=== PATIENT | female | born 1965 | race Caucasian/White ===

== ENCOUNTER 2024-09-22 08:59 | Outpatient (OUT) | payer OTHER, SELFPAY ==
--- NOTE | 2024-09-22 09:08 | ECG_ITS ---
[facility] Test Date: 2024-09-22 Pat Name: GABE FU Department: Room: - Gender: Female [employer]: : [id number] Requested By: CITLALI MAYORGA Order Number: [id number] Reading MD: Measurements Intervals [place] Rate: 56 P: 85 MO: 164 QRS: 68 QRSD: 92 T: 83 QT: 426 QTc: 414 Interpretive Statements SINUS BRADYCARDIA POSSIBLE RIGHT VENTRICULAR CONDUCTION DELAY [RSR (QR) IN V1/V2] No previous ECG available for comparison
== END 2024-09-22 09:00 | disposition home or self-care (01) ==
LOC: PST 09:02
PROVIDERS: Family Provider Family Medicine; PCP Family Medicine; Visit Provider Obstetrics & Gynecology
DX: Z01.818 Encounter for other preprocedural examination (principal); N95.0 Postmenopausal bleeding; R10.2 Pelvic and perineal pain; N94.10 Unspecified dyspareunia; Z80.41 Family history of malignant neoplasm of ovary
CPT/HCPCS: 93005

== ENCOUNTER 2024-09-22 09:07 | Outpatient (OUT) | payer OTHER, SELFPAY ==
[2024-09-22 09:47] LABS: Basophils Percent Auto 0.8 % (0.2-2.0); Eosinophils Absolute Auto 0.2 10^3/uL (0.0-0.7); Eosinophils Percent Auto 3.1 % (0.9-7.0); Hematocrit 35.9 % (36.0-48.0); Hemoglobin 11.7 g/dL (12.0-16.0); Lymphocytes Absolute Auto 1.5 10^3/uL (1.2-3.8); Mean Corpuscular HGB Conc 32.6 g/dL (29.9-35.2); Mean Corpuscular Hemoglobin 30.5 pg (26.7-34.0); Mean Corpuscular Volume 93.7 fL (81.0-99.0); Mean Platelet Volume 9.3 fL (9.5-13.5); Monocytes Absolute Auto 0.5 10^3/uL (0.3-0.8); Monocytes Percent Auto 9.6 % (1.7-12.0); Neutrophils Absolute Auto 2.6 10^3/uL (1.4-6.5); Neutrophils Percent Auto 55.5 % (43.0-75.0); Platelet Count 216 10^3/uL (150-450); Red Blood Count 3.83 10^6/uL (4.20-5.40); Red Cell Distribution Width 13.4 % (11.0-15.0); White Blood Count 4.8 10^3/uL (4.0-11.0)
[2024-09-22 10:12] LABS: Free T4 0.82 ng/dL (0.76-1.46)
[2024-09-22 10:17] LABS: Alanine Aminotransferase 24 U/L (14-59); Anion Gap 10.7; Aspartate Amino Transferase 27 U/L (15-37); BUN Creatinine Ratio 17.1; Bilirubin Total 0.4 mg/dL (0.2-1.0); Calcium 8.9 mg/dL (8.5-10.1); Carbon Dioxide 31.4 mmol/L (21.0-32.0); Chloride 106 mmol/L (98-107); Estimated GFR (African America >60 (>=60 mL/min/1.73m^2); Estimated GFR (Non-African Ame >60 (>=60 mL/min/1.73m^2); Glucose 86 mg/dL (74-106); Potassium 4.1 mmol/L (3.5-5.1); Sodium 144 mmol/L (136-145)
[2024-09-22 10:18] LABS: Albumin Globulin Ratio 1.1; Albumin Level 3.4 g/dL (3.4-5.0); Alkaline Phosphatase 61 U/L (46-116); Chol HDL Ratio 2.6; Cholesterol 246 mg/dL (<=200); Globulin 3.1 g/dL; HDL Cholesterol 93 mg/dL (40-60); Thyroid Stimulating Hormone 1.879 uIU/mL (0.358-3.740); Total Protein 6.5 g/dL (6.4-8.2); Triglycerides 61 mg/dL (<=150); VLDL CHOLESTEROL 12.2 mg/dL
== END 2024-09-22 09:08 | disposition home or self-care (01) ==
LOC: LAB 09:07
PROVIDERS: Family Provider Family Medicine; PCP Family Medicine; Visit Provider Family Medicine
DX: Z00.00 Encounter for general adult medical examination without abnormal findings (principal); Z01.818 Encounter for other preprocedural examination; N95.0 Postmenopausal bleeding; R10.2 Pelvic and perineal pain; N94.10 Unspecified dyspareunia; Z80.41 Family history of malignant neoplasm of ovary
CPT/HCPCS: 80053; 80061; 84439; 84443; 85025; 93005

== ENCOUNTER 2024-10-02 07:38 | Day surgery (SDC) | payer OTHER, SELFPAY ==
[2024-09-22 09:34] VITALS: BP 111/59; PULSE 69; TEMP 36.4; O2SAT 96; BMI 18.1
[2024-10-02] VITALS (12 sets, daily range): BP systolic 96–112; BP diastolic 57–68; PULSE 53–70; TEMP 36.1–36.3; O2SAT 95–98; BMI 18.0
--- OUTSIDE RECORDS SUMMARY | 2024-10-02 07:40 | XMS_ITS | CCD ---
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 Role Phone Elmira Gong MD Primary Care Provider [phone] ANATOLY DELATORRE Attending Unavailable DEFELMIRA NICHOLAS Referring Unavailable DEFRANCE, ELMIRA Velez Primary Care Unavailable DEFRANCE, ELMIRA Velez Primary Care Unavailable ROMULO GARCIA Attending Unavailab BARBARA Wyatt Consulting Unavailable AL-CARRIEBOURRoopa PUCKETT A Admitting Unavailabl e KAPIL BABB Referring Unavailable DEFRANCE, ELMIRA Velez Primary Care Unavailable KAPIL BABB Referring Unavailable DEFRANCE, ELMIRA Velez Primary Care Unavailable KAPIL BABB Referring Unavailable DEFRANCE, ELMIRA Velez Primary Care Unavailable BABBKAPIL Referring Unavailable DEFRANCE, ELMIRA Velez Primary Care Unavailable ANATOLY DELATORRE Referring Unavailable DEFRANCE, ELMIRA Velez Primary Care Unavailable DEFRANCE, ELMIRA Velez Referring Unavailable DEFRANCE, ELMIRA Velez Primary Care Unavailable Defrance Elmira MAGDALENO Primary Care Provider [phone] SOFIA RAI Attending Unavailable SOFIA RAI Attending Unavailable KERENCITLALI Attending Unavailable KERENCITLALI TRUJILLO Attending Unavailable DEFELMIRA NICHOLAS Attending Unavailable DEFRANCE, ELMIRA Velez Referring Unavailable DEFRANCE, ELMIRA Velez Primary Care Unavailable Medications Current Medications Medication Drug Class(es) Dates Sig (Normalized) Sig (Original) estradiol 0.1 mg/ml vaginal cream (8 sources) Estrogen Start: 01-16-2024 estradiol (Estrace) 0.1 MG/GM vaginal cream Insert 1 g into the vagina 2 (two) times a week 01/16/2024 Active Start: 09-19-2023 End: 01-15-2024 estradioL (ESTRACE) 0.01 % ( 0.1 mg/gram) vaginal cream Indications: Genitourinary syndrome of menopause Insert 1 g into the vagina 2 (two) times a week. 127.5 g 3 01/16/2024 Active hydroxychloroquine sulfate 200 mg oral tablet (13 sources) Antimalarial, Antirheumatic Agent Start: 04-08-2024 End: 09-21-2024 take 1 tablet by mouth in the morning, then take 1 tablet by mouth at bedtime hydroxychloroquine (PLAQUENIL) 200 mg tablet Indications: HLA B27 positive Take 1 tablet (200 mg total) by mouth in the morning and 1 tablet (200 mg total) before bedtime. 180 tablet 3 09/21/2024 Active Start: 04-24-2023 take 1 tablet by carleen th in the morning, then take 1 tablet by mouth at bedtime hydrOXYchloroQUINE (PLAQUENIL) 200 mg tablet Indications: HLA B27 positive Take 1 tablet (200 mg total) by mouth in the morning and 1 tablet (200 mg total) before bedtime. 180 tablet 1 04/24/2023 Active Multiple Vitamin (multivitamin) capsule (4 sources) take 1 capsule by mouth in the morning Multiple Vitamin (multivitamin) capsule Take 1 capsule by mouth in the morning. Active multivitamin capsule (3 sources) take 1 capsule by mouth in the morning multivitamin capsule Take 1 capsule by mouth in the morning. Active take 1 capsule by mouth in the m orning multivitamin capsule Take 1 capsule by mouth in the morning. 0 Active PARoxetine hydrochloride 10 mg oral tablet (13 sources) Serotonin Reuptake Inhibitor Start: 09-19-2023 End: 09-21-2024 take 1 tablet by mouth once daily PARoxetine (PaxiL) 10 mg tablet Indications: Menopausal vasomotor syndrome Take 1 tablet (10 mg total) by mouth nightly. 90 tablet 3 09/21/2024 Active Completed/Discontinued Medications Medication Drug Class(es) Dates Sig (Normalized) Sig (Original) gabapentin 300 mg oral capsule (2 sources) Anti-epileptic Agent Start: 4 End: gabapentin (Neurontin) 300 MG capsule 03/27/2024 07/28/2024 Discontinued (Other) 1 ml methylPREDNISolone acetate 40 mg/ml injection (4 sources) Corticosteroid Start: 4 End: methylPREDNISolone acetate (DEPO-Medrol) injection 20 mg Start: 07-13-2024 End: 07-13-2024 20 mg, Intra-articular, Once PRN Procedure, Starting on Sat07/13/24 at 1622, For 1 dose Problems Active Problems Problem Classification Problem Date Documented Date Episodic/Chronic Abdominal pain (6 sources) Pain in pelvis; Translations: [Pelvic and perineal pain] 07-28-2024 Episodic Administrative/social admission (3 sources) Patient encounter status; Translations: [Other specified counseling] 07-28-2024 Episodic Menopausal disorders (13 sources) Genitourinary syndrome of menopause; Translations: [Other specified menopausal and perimenopausal disorders] Onset: 06-15-2022 01-15-2024 Chronic Other connective tissue disease (4 sources) Triggering of digit; Translations: [Trigger finger, right ring finger] 07-27-2024 Episodic Other connective tissue disease (4 sources) Pain in finger of right hand; Translations: [Pain in right finger(s)] 07-27-2024 Episodic Other female genital disorders (3 sources) Pain in female genitalia on intercourse; Translations: [Unspecified dyspareunia] 07-28-2024 Chronic Other injuries and conditions due to external causes (1 source) Unspecified injury of head, initial encounter; Translations: [Unspecified injury of head, initial encounter] Onset: 03-26-2024 Episodic Other injuries and conditions due to external causes (1 source) Injury, unspecified, initial encounter; Translations: [Injury, unspecified, initial encounter] Onset: 03-26-2024 Episodic Other screening for suspected conditions (not mental disorders or infectious disease) (1 source) Encounter for screening mammogram for malignant neoplasm of breast; Translations: [Encounter for screening mammogram for malignant neoplasm of breast] Onset: 09-21-2024 Episodic Respiratory failure; insufficiency; arrest (adult) (1 source) Acute respiratory failure, unspecified whether with hypoxia or hypercapnia; Translations: [Acute respiratory failure, unspecified whether with hypoxia or hypercapnia] Onset: 03-26-2024 Episodic Unclassified (1 source) ems/Bucked off horse Onset: 03-26-2024 Unclassified (1 source) Genetic Evaluation Onset: 05-21-2024 Unclassified (1 source) Annual Exam Onset: 09-21-2024 Past or Other Problems Problem Classification Problem Date Documented Date Episodic/Chronic E Codes: Transport; not MVT (3 sources) Animal-rider injured by fall from or being thrown from horse in noncollision accident, initial encounter; Translations: [Accident involving animal being ridden injuring rider of animal] Onset: 03-26-2024 03-27-2024 Episodic Mood disorders (3 sources) Mood disorders Onset: 09-20-2023 Resolved: 09-21-2024 09-20-2023 Residual codes; unclassified (4 sources) 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; Translations: [Genetic susceptibility to other disease] Onset: 06-06-2020 06-06-2020 Episodic Residual codes; unclassified (2 sources) Family history of malignant neoplasm of breast; Translations: [Family history of malignant neoplasm of breast] Onset: 02-21-2024 Episodic Residual codes; unclassified (2 sources) Family history of malignant neoplasm of ovary; Translations: [Family history of malignant neoplasm of ovary] Onset: 02-21-2024 Episodic Residual codes; unclassified (3 sources) Family history of malignant neoplasm of ovary; Translations: [Family history of malignant neoplasm of ovary] Onset: 02-21-2024 09-07-2024 Episodic Residual codes; unclassified (2 sources) Family history of breast cancer; Translations: [Family history of malignant neoplasm of breast] Onset: 02-21-2024 02-21-2024 Episodic Residual codes; unclassified (1 source) Genetic susceptibility to other disease; Translations: [Genetic susceptibility to other disease] Onset: 06-06-2020 Episodic Results Test Name Value Interpretation Reference Range Facility No Panel Informationon 07-13 Sofia Rai NP 07/13/2024 4:25 PM Tendon Sheath Inj (CPT 90271 Only): R ring A1 on 07/13/2024 4:22 PM Details: 24 G needle, anterior approach Medications: 20 mg methylPREDNISolone acetate 40 MG/ML Outcome: tolerated well, no immediate complications Site cleaned with isopropyl alcohol. Procedure, treatment alternatives, risks and benefits explained, specific risks discussed. Consent was given by the patient. [facility] BASIC METABOLIC PANLon 03-27 Anion gap [Moles/Vol] 8 mmol/L Normal 5-15 [facility] Comment on above: Performed By: #### C BCA, 67463-8, PINR, 25494-0, 2639-3, 1798- 8, CMP, 3040-3, 5643-2 #### [facility] ([id number]) [address], [address] [place] [address] Calcium [Mass/Vol] 8.2 mg/dL Low 8.5-10.5 [facility] Comment on above: Performed By: #### C BCA, 04244-4, PINR, 92805-2, 2639-3, 1798- 8, CMP, 3040-3, 5643-2 #### [facility] ([id number]) [address], [address] [place] [address] Chloride [Moles/Vol] 105 mmol/L Normal 98-109 [facility] Comment on above: Performed By: #### C BCA, 04812-6, PINR, 32616-2, 2639-3, 1798- 8, CMP, 3040-3, 5643-2 #### [facility] ([id number]) [address], [address] [place] [address] CO2 [Moles/Vol] 27 mmol/L Normal 22-32 [facility] Comment on above: Performed By: #### C BCA, 62414-1, PINR, 80863-2, 2639-3, 1798- 8, CMP, 3040-3, 5643-2 #### [facility] ([id number]) [address], [address] [place] [address] Creatinine [Mass/Vol] 0.65 mg/dL Normal 0.40-1.00 [facility] Comment on above: Result Comment: METH OD TRACEABLE TO IDMS STANDARD Performed By: #### C BCA, 24194-7, PINR, 63289-7, 2639-3, 1798-8, CMP, 3040-3, 5643-2 #### [facility] ([id number]) [address], [address] [place] [address] eGFR (CKD-EPI) NON-RACE DEPENDENT >90 Normal >59 [facility] Comment on above: Result Comment: Reported eGFR is based on the CKD-EPI 2020 equation that does not use a race coefficient. Performed By: #### C BCA, 87465-1, PINR, 54903-8, 2639-3, 1798-8, CMP, 3040-3, 5643-2 #### [facility] ([id number]) [address], [address] [place] [address] Glucose [Mass/Vol] 80 mg/dL Normal 65-99 [facility] Comment on above: Performed By: #### C BCA, 26706-9, PINR, 97322-7, 2639-3, 1798- 8, CMP, 3040-3, 5643-2 #### [facility] ([id number]) [address], [address] [place] [address] Potassium [Moles/Vol] 3.3 mmol/L Low 3.5-5.0 [facility] Comment on above: Performed By: #### C BCA, 72605-2, PINR, 97833-0, 2639-3, 1798- 8, CMP, 3040-3, 5643-2 #### [facility] ([id number]) [address], [address] [place] [address] Sodium [Moles/Vol] 140 mmol/L Normal 134-146 [facility] Comment on above: Performed By: #### C BCA, 04529-6, PINR, 09964-1, 2639-3, 1798- 8, CMP, 3040-3, 5643-2 #### [facility] ([id number]) [address], [address] [place] [address] Urea nitrogen [Mass/Vol] 12 mg/dL Normal 5-23 [facility] Comment on above: Performed By: #### C BCA, 95621-5, PINR, 73206-3, 2639-3, 1798- 8, CMP, 3040-3, 5643-2 #### [facility] ([id number]) [address], [address] [place] [address] CBC AND AUTO DIFFon 03-27-20 24 ABSOLUTE BASOPHIL 0.0 X10E9/L Normal 0.0-0.2 [facility] Comment on above: Performed By: #### C BCA, 81915-8, PINR, 44350-2, 2639-3, 1798- 8, CMP, 3040-3, 5643-2 #### [facility] ([id number]) [address], [address] [place] [address] ABSOLUTE NEUTROPHIL 4.0 X10E9/L Normal 1.5-6.6 [facility] Comment on above: Performed By: #### C BCA, 96721-1, PINR, 73543-3, 2639-3, 1798- 8, CMP, 3040-3, 5643-2 #### [facility] ([id number]) [address], [address] [place] [address] Basophils/100 WBC (Bld) 0.4 % Normal [facility] Comment on above: Performed By: #### C BCA, 46100-3, PINR, 99404-0, 2639-3, 1798- 8, CMP, 3040-3, 5643-2 #### [facility] ([id number]) [address], [address] [place] [address] Eosinophils (Bld) [#/Vol] 0.1 10*3/uL Normal 0.0-0.4 [facility] Comment on above: Performed By: #### C BCA, 17774-6, PINR, 21942-9, 2639-3, 1798- 8, CMP, 3040-3, 5643-2 #### [facility] ([id number]) [address], [address] [place] [address] Eosinophils/100 WBC (Bld) 2.2 % Normal [facility] Comment on above: Performed By: #### C BCA, 64619-3, PINR, 08493-4, 2639-3, 1798- 8, CMP, 3040-3, 5643-2 #### [facility] ([id number]) [address] [place] [address] Erythrocyte distribution width (RBC) [Ratio] 14.0 % Normal 11.5-15.0 [facility] Comment on above: Performed By: #### C BCA, 96300-9, PINR, 48061-7, 2639-3, 1798- 8, CMP, 3040-3, 5643-2 #### [facility] ([id number]) [address] [address] [place] [address] Hematocrit (Bld) [Volume fraction] 31.2 % Low 35-47 [facility] Comment on above: Performed By: #### C BCA, 75850-5, PINR, 12616-5, 2639-3, 1798- 8, CMP, 3040-3, 5643-2 #### [facility] ([id number]) [address] [place] [address] Hemoglobin (Bld) [Mass/Vol] 10.2 g/dL Low 11.7-15.5 [facility] Comment on above: Performed By: #### C BCA, 38354-3, PINR, 82681-9, 2639-3, 1798- 8, CMP, 3040-3, 5643-2 #### [facility] ([id number]) [address] [place] [address] Lymphocytes (Bld) [#/Vol] 1.1 10*3/uL Normal 1.0-3.5 [facility] Comment on above: Performed By: #### C BCA, 85826-6, PINR, 65543-5, 2639-3, 1798- 8, CMP, 3040-3, 5643-2 #### [facility] ([id number]) [address] [address] [place] [address] Lymphocytes/100 WBC (Bld) 19.7 % Normal [facility] Comment on above: Performed By: #### C BCA, 42022-1, PINR, 56022-6, 2639-3, 1798- 8, CMP, 3040-3, 5643-2 #### [facility] ([id number]) [address], [address] [place] [address] MCH (RBC) [Entitic mass] 29.2 pg Normal 27-34 [facility] Comment on above: Performed By: #### C BCA, 06234-8, PINR, 71475-2, 2639-3, 1798- 8, CMP, 3040-3, 5643-2 #### [facility] ([id number]) [address], [address] [place] [address] MCHC (RBC) [Mass/Vol] 32.6 g/dL Normal 32-36 [facility] Comment on above: Performed By: #### C BCA, 07516-5, PINR, 41798-8, 2639-3, 1798- 8, CMP, 3040-3, 5643-2 #### [facility] ([id number]) [address], [address] [place] [address] MCV (RBC) [Entitic vol] 90 fL Normal 80-100 [facility] Comment on above: Performed By: #### C BCA, 02995-9, PINR, 37437-0, 2639-3, 1798- 8, CMP, 3040-3, 5643-2 #### [facility] ([id number]) [address] [address] [place] [address] Monocytes (Bld) [#/Vol] 0.5 10*3/uL Normal 0-0.9 [facility] Comment on above: Performed By: #### C BCA, 27453-1, PINR, 81156-5, 2639-3, 1798- 8, CMP, 3040-3, 5643-2 #### [facility] ([id number]) [address], [address] [place] [address] Monocytes/100 WBC (Bld) 9.0 % Normal [facility] Comment on above: Performed By: #### C BCA, 49110-2, PINR, 63236-6, 2639-3, 1798- 8, CMP, 3040-3, 5643-2 #### [facility] ([id number]) [address], [address] [place] [address] Neutrophils/100 WBC (Bld) 68.7 % Normal [facility] Comment on above: Performed By: #### C BCA, 45765-0, PINR, 67584-6, 2639-3, 1798- 8, CMP, 3040-3, 5643-2 #### [facility] ([id number]) [address], [address] [place] [address] Platelet mean volume (Bld) [Entitic vol] 8.4 fL Normal 7-12 [facility] Comment on above: Performed By: #### C BCA, 43764-8, PINR, 19951-0, 2639-3, 1798- 8, CMP, 3040-3, 5643-2 #### [facility] ([id number]) [address], [address] [place] [address] Platelets (Bld) [#/Vol] 152 10*3/uL Normal 150-450 [facility] Comment on above: Performed By: #### C BCA, 49027-4, PINR, 83919-9, 2639-3, 1798- 8, CMP, 3040-3, 5643-2 #### [facility] ([id number]) [address], [address] [place] [address] RBC COUNT 3.49 X10E12/L Low 3.80-5.20 [facility] Comment on above: Performed By: #### C BCA, 06587-3, PINR, 80198-9, 2639-3, 1798- 8, CMP, 3040-3, 5643-2 #### [facility] ([id number]) [address], [address] [place] [address] WBC (Bld) [#/Vol] 5.8 10*3/uL Normal 4.0-11.0 [facility] Comment on above: Performed By: #### C BCA, 84596-4, PINR, 41828-1, 2639-3, 1798- 8, CMP, 3040-3, 5643-2 #### [facility] ([id number]) [address], [address] [place] [address] AMYLASEon 03-26-2024 Amylase [Catalytic activity/Vol] 66 U/L Normal 28-100 [facility] Comment on above: Performed By: #### C BCA, 51502-8, PINR, 18600-2, 2639-3, 1798- 8, CMP, 3040-3, 5643-2 #### [facility] ([id number]) [address], [address] [place] [address] CBC AND AUTO DIFFon 03-26-20 24 ABSOLUTE BASOPHIL 0.1 X10E9/L Normal 0.0-0.2 [facility] Comment on above: Performed By: #### C BCA, 90269-9, PINR, 91299-8, 2639-3, 1798- 8, CMP, 3040-3, 5643-2 #### [facility] ([id number]) [address], [address] [place] [address] ABSOLUTE NEUTROPHIL 4.2 X10E9/L Normal 1.5-6.6 [facility] Comment on above: Performed By: #### C BCA, 92236-3, PINR, 58563-4, 2639-3, 1798- 8, CMP, 3040-3, 5643-2 #### [facility] ([id number]) [address], [address] [place] [address] Basophils/100 WBC (Bld) 1.2 % Normal [facility] Comment on above: Performed By: #### C BCA, 03786-2, PINR, 91308-7, 2639-3, 1798- 8, CMP, 3040-3, 5643-2 #### [facility] ([id number]) [address], [address] [place] [address] Eosinophils (Bld) [#/Vol] 0.1 10*3/uL Normal 0.0-0.4 [facility] Comment on above: Performed By: #### C BCA, 14025-6, PINR, 85233-7, 2639-3, 1798- 8, CMP, 3040-3, 5643-2 #### [facility] ([id number]) [address], [address] [place] [address] Eosinophils/100 WBC (Bld) 1.2 % Normal [facility] Comment on above: Performed By: #### C BCA, 65271-9, PINR, 57556-9, 2639-3, 1798- 8, CMP, 3040-3, 5643-2 #### [facility] ([id number]) [address], [address] [place] [address] Erythrocyte distribution width (RBC) [Ratio] 13.9 % Normal 11.5-15.0 [facility] Comment on above: Performed By: #### C BCA, 71704-3, PINR, 39902-2, 2639-3, 1798- 8, CMP, 3040-3, 5643-2 #### [facility] ([id number]) [address], [address] [place] [address] Hematocrit (Bld) [Volume fraction] 30.0 % Low 35-47 [facility] Comment on above: Performed By: #### C BCA, 14423-9, PINR, 81551-5, 2639-3, 1798- 8, CMP, 3040-3, 5643-2 #### [facility] ([id number]) [address], [address] [place] [address] Hemoglobin (Bld) [Mass/Vol] 10.2 g/dL Low 11.7-15.5 [facility] Comment on above: Performed By: #### C BCA, 21718-4, PINR, 32339-0, 2639-3, 1798- 8, CMP, 3040-3, 5643-2 #### [facility] ([id number]) [address] [place] [address] Lymphocytes (Bld) [#/Vol] 0.8 10*3/uL Low 1.0-3.5 [facility] Comment on above: Performed By: #### C BCA, 39225-5, PINR, 24695-0, 2639-3, 1798- 8, CMP, 3040-3, 5643-2 #### [facility] ([id number]) [address], [address] [place] [address] Lymphocytes/100 WBC (Bld) 15.3 % Normal [facility] Comment on above: Performed By: #### C BCA, 53806-9, PINR, 37625-5, 2639-3, 1798- 8, CMP, 3040-3, 5643-2 #### [facility] ([id number]) [address], [address] [place] [address] MCH (RBC) [Entitic mass] 30.6 pg Normal 27-34 [facility] Comment on above: Performed By: #### C BCA, 19851-1, PINR, 84618-2, 2639-3, 1798- 8, CMP, 3040-3, 5643-2 #### [facility] ([id number]) [address], [address] [place] [address] MCHC (RBC) [Mass/Vol] 33.9 g/dL Normal 32-36 [facility] Comment on above: Performed By: #### C BCA, 66071-3, PINR, 89065-6, 2639-3, 1798- 8, CMP, 3040-3, 5643-2 #### [facility] ([id number]) [address], [address] [place] [address] MCV (RBC) [Entitic vol] 90 fL Normal 80-100 [facility] Comment on above: Performed By: #### C BCA, 30359-0, PINR, 11949-3, 2639-3, 1798- 8, CMP, 3040-3, 5643-2 #### [facility] ([id number]) [address], [address] [place] [address] Monocytes (Bld) [#/Vol] 0.4 10*3/uL Normal 0-0.9 [facility] Comment on above: Performed By: #### C BCA, 53246-5, PINR, 09989-7, 2639-3, 1798- 8, CMP, 3040-3, 5643-2 #### [facility] ([id number]) [address], [address] [place] [address] Monocytes/100 WBC (Bld) 6.5 % Normal [facility] Comment on above: Performed By: #### C BCA, 57267-9, PINR, 52748-4, 2639-3, 1798- 8, CMP, 3040-3, 5643-2 #### [facility] ([id number]) [address], [address] [place] [address] Neutrophils/100 WBC (Bld) 75.8 % Normal [facility] Comment on above: Performed By: #### C BCA, 07088-8, PINR, 09325-4, 2639-3, 1798- 8, CMP, 3040-3, 5643-2 #### [facility] ([id number]) [address], [address] [place] [address] Platelet mean volume (Bld) [Entitic vol] 8.1 fL Normal 7-12 [facility] Comment on above: Performed By: #### C BCA, 37091-4, PINR, 20026-4, 2639-3, 1798- 8, CMP, 3040-3, 5643-2 #### [facility] ([id number]) [address], [address] [place] [address] Platelets (Bld) [#/Vol] 169 10*3/uL Normal 150-450 [facility] Comment on above: Performed By: #### C BCA, 73035-2, PINR, 99278-9, 2639-3, 1798- 8, CMP, 3040-3, 5643-2 #### [facility] ([id number]) [address], [address] [place] [address] RBC COUNT 3.32 X10E12/L Low 3.80-5.20 [facility] Comment on above: Performed By: #### C BCA, 26199-9, PINR, 99063-8, 2639-3, 1798- 8, CMP, 3040-3, 5643-2 #### [facility] ([id number]) [address], [address] [place] [address] WBC (Bld) [#/Vol] 5.5 10*3/uL Normal 4.0-11.0 [facility] Comment on above: Performed By: #### C BCA, 22041-8, PINR, 48944-9, 2639-3, 1798- 8, CMP, 3040-3, 5643-2 #### [facility] ([id number]) [address], [address] [place] [address] COMPREHENSIVE METABOLIC PANE Basim 03-26-2024 Albumin [Mass/Vol] 3.5 g/dL Normal 3.2-5.3 [facility] Comment on above: Performed By: #### C BCA, 60754-2, PINR, 83160-2, 2639-3, 1798- 8, CMP, 3040-3, 5643-2 #### [facility] ([id number]) [address], [address] [place] [address] ALP [Catalytic activity/Vol] 49 U/L Normal 39-130 [facility] Comment on above: Performed By: #### C BCA, 66597-8, PINR, 05580-4, 2639-3, 1798- 8, CMP, 3040-3, 5643-2 #### [facility] ([id number]) [address], [address] [place] [address] ALT [Catalytic activity/Vol] 25 U/L Normal 0-31 [facility] Comment on above: Performed By: #### C BCA, 47498-4, PINR, 65445-0, 2639-3, 1798- 8, CMP, 3040-3, 5643-2 #### [facility] ([id number]) [address], [address] [place] [address] Anion gap [Moles/Vol] 13 mmol/L Normal 5-15 [facility] Comment on above: Performed By: #### C BCA, 62138-3, PINR, 40896-4, 2639-3, 1798- 8, CMP, 3040-3, 5643-2 #### [facility] ([id number]) [address], [address] [place] [address] AST [Catalytic activity/Vol] 35 U/L Normal 0-41 [facility] Comment on above: Performed By: #### C BCA, 12077-1, PINR, 09899-2, 2639-3, 1798- 8, CMP, 3040-3, 5643-2 #### [facility] [facility] ([id number]) [address], [address] [place] [address] Bilirubin [Mass/Vol] 0.2 mg/dL Low 0.3-1.2 [facility] Comment on above: Performed By: #### C BCA, 93340-9, PINR, 47971-9, 2639-3, 1798- 8, CMP, 3040-3, 5643-2 #### [facility] ([id number]) [address], [address] [place] [address] Calcium [Mass/Vol] 8.0 mg/dL Low 8.5-10.5 [facility] Comment on above: Performed By: #### C BCA, 74464-2, PINR, 12772-7, 2639-3, 1798- 8, CMP, 3040-3, 5643-2 #### [facility] ([id number]) [address], [address] [place] [address] Chloride [Moles/Vol] 107 mmol/L Normal 98-109 [facility] Comment on above: Performed By: #### C BCA, 95883-8, PINR, 66169-0, 2639-3, 1798- 8, CMP, 3040-3, 5643-2 #### [facility] ([id number]) [address], [address] [place] [address] CO2 [Moles/Vol] 19 mmol/L Low 22-32 [facility] Comment on above: Performed By: #### C BCA, 32369-2, PINR, 12659-4, 2639-3, 1798- 8, CMP, 3040-3, 5643-2 #### [facility] ([id number]) [address], [address] [place] [address] Creatinine [Mass/Vol] 0.75 mg/dL Normal 0.40-1.00 [facility] Comment on above: Result Comment: METH OD TRACEABLE TO IDMS STANDARD Performed By: #### C BCA, 83575-7, PINR, 69610-9, 2639-3, 1798-8, CMP, 3040-3, 5643-2 #### [facility] ([id number]) [address], [address] [place] [address] eGFR (CKD-EPI) NON-RACE DEPENDENT >90 Normal >59 [facility] Comment on above: Result Comment: Reported eGFR is based on the CKD-EPI 2020 equation that does not use a race coefficient. Performed By: #### C BCA, 63764-7, PINR, 24095-5, 2639-3, 1798-8, CMP, 3040-3, 5643-2 #### [facility] ([id number]) [address], [address] [place] [address] Glucose [Mass/Vol] 97 mg/dL Normal 65-99 [facility] Comment on above: Performed By: #### C BCA, 82435-0, PINR, 30335-3, 2639-3, 1798- 8, CMP, 3040-3, 5643-2 #### [facility] ([id number]) [address], [address] [place] [address] Potassium [Moles/Vol] 3.7 mmol/L Normal 3.5-5.0 [facility] Comment on above: Performed By: #### C BCA, 46284-1, PINR, 54597-8, 2639-3, 1798- 8, CMP, 3040-3, 5643-2 #### [facility] ([id number]) [address], [address] [place] [address] Protein [Mass/Vol] 5.8 g/dL Low 6.0-8.0 [facility] Comment on above: Performed By: #### C BCA, 99964-2, PINR, 50195-8, 2639-3, 1798- 8, CMP, 3040-3, 5643-2 #### [facility] ([id number]) [address], [address] [place] [address] Sodium [Moles/Vol] 139 mmol/L Normal 134-146 [facility] Comment on above: Performed By: #### C BCA, 58375-4, PINR, 94180-4, 2639-3, 1798- 8, CMP, 3040-3, 5643-2 #### [facility] ([id number]) [address], [address] [place] [address] Urea nitrogen [Mass/Vol] 17 mg/dL Normal 5-23 [facility] Comment on above: Performed By: #### C BCA, 78741-1, PINR, 11885-3, 2639-3, 1798- 8, CMP, 3040-3, 5643-2 #### [facility] ([id number]) [address], [address] [place] [address] CT ABDOMEN AND PELVIS W CONT on 03-26-2024 CT ABDOMEN AND PELVIS W CONT CT ABDOMEN AND PELVIS W CONT CLINICAL INFORMATION: major trauma injury level 1 trauma. Bucked off of horse with loss of consciousness. Initial encounter for traumatic injury of the chest, abdomen and pelvis. TECHNIQUE: CT chest , abdomen and pelvis with intravenous contrast. All CT scans at this facility use dose modulation, iterative reconstruction, and/or weight based dosing when appropriate to reduce radiation dose to as low as reasonably achievable. COMPARISON: No relevant prior studies available. FINDINGS: Chest: The thyroid gland is within normal limits. No enlarged axillary, supraclavicular or mediastinal lymph nodes. Thoracic aorta nonaneurysmal. No evidence of dissection. No pulmonary embolism. Heart size is normal. No pericardial effusion. No significant coronary calcifications. The esophagus is unremarkable. Images of upper abdomen as below. The trachea and bronchi are patent. Endotracheal tube above the adelaide. No consolidation, pneumothorax or pleural effusion. Dependent atelectasis. Sternum is intact. Clavicles are intact. Posterior shoulders are intact. Thoracic spine is intact. Abdomen and pelvis: Normal hepatic morphology. No suspicious focal intrahepatic lesions. No liver laceration. Gallbladder present. No biliary dilatation or portal vein thrombosis. Pancreas and spleen are within normal limits. The adrenal glands and kidneys are normal. Urinary bladder unremarkable. Uterus and ovaries are negative for CT evaluation. Abdominal aorta nonaneurysmal. IVC right-sided. No enlarged abdominal or pelvic lymph nodes. No bowel dilatation. No free air or free fluid. No peritoneal nodularity. No abdominal wall hernia or contusion. Pelvic bones are intact. No sacroiliac or pubic symphysis widening. Visualized portions of hips intact. Lumbar spine is intact. IMPRESSION: * No traumatic injury in the chest, abdomen or pelvis. Finalized by Marco A Sanchez MD on 03/26/2024 11:58 AM Normal [facility] CT BRAIN WO CONTon CT BRAIN WO CONT CT BRAIN WO CONT STUDY: CT HEAD WITHOUT CONTRAST CLINICAL HISTORY: major trauma injury COMPARISON: None Procedure: Multi-detector CT performed through the brain without IV contrast. The lack of IV contrast limits evaluation for acute infarct, mass, infectious process,or demyelinating disease.Automated exposure control was utilized. Findings: There is no intracranial hemorrhage, extra-axial fluid collection, mass effect, or hydrocephalus. Odell-white matter differentiation is appropriate. Infarcts and masses may be occult on CT, but grossly no acute infarct identified There is no midline shift. IMPRESSION: * No acute intracranial findings. Consider brain MRI if you suspect occult process. All CT scans at this facility use dose modulation, iterative reconstruction, and/or weight based dosing when appropriate to reduce radiation dose to as low as reasonably achievable. Finalized by Alfredo Thomas MD on 03/26/2024 11:54 AM Normal [facility] CT CHEST W CONTon 03-26-2024 CT CHEST W CONT CT CHEST W CONT CLINICAL INFORMATION: major trauma injury level 1 trauma. Bucked off of horse with loss of consciousness. Initial encounter for traumatic injury of the chest, abdomen and pelvis. TECHNIQUE: CT chest , abdomen and pelvis with intravenous contrast. All CT scans at this facility use dose modulation, iterative reconstruction, and/or weight based dosing when appropriate to reduce radiation dose to as low as reasonably achievable. COMPARISON: No relevant prior studies available. FINDINGS: Chest: The thyroid gland is within normal limits. No enlarged axillary, supraclavicular or mediastinal lymph nodes. Thoracic aorta nonaneurysmal. No evidence of dissection. No pulmonary embolism. Heart size is normal. No pericardial effusion. No significant coronary calcifications. The esophagus is unremarkable. Images of upper abdomen as below. The trachea and bronchi are patent. Endotracheal tube above the adelaide. No consolidation, pneumothorax or pleural effusion. Dependent atelectasis. Sternum is intact. Clavicles are intact. Posterior shoulders are intact. Thoracic spine is intact. Abdomen and pelvis: Normal hepatic morphology. No suspicious focal intrahepatic lesions. No liver laceration. Gallbladder present. No biliary dilatation or portal vein thrombosis. Pancreas and spleen are within normal limits. The adrenal glands and kidneys are normal. Urinary bladder unremarkable. Uterus and ovaries are negative for CT evaluation. Abdominal aorta nonaneurysmal. IVC right-sided. No enlarged abdominal or pelvic lymph nodes. No bowel dilatation. No free air or free fluid. No peritoneal nodularity. No abdominal wall hernia or contusion. Pelvic bones are intact. No sacroiliac or pubic symphysis widening. Visualized portions of hips intact. Lumbar spine is intact. IMPRESSION: * No traumatic injury in the chest, abdomen or pelvis. Finalized by Marco A Sanchez MD on 03/26/2024 11:58 AM Normal [facility] ETHANOLon 03-26-2024 Ethanol [Mass/Vol] mg/dL Normal 0.00-0.08 [facility] Comment on above: Result Comment: This report is intended for use in clinical monitoring or management of patients. Performed By: #### C BCA, 18249-7, PINR, 72680-6, 2639-3, 1798-8, CMP, 3040-3, 5643-2 #### [facility] ([id number]) [address], [address] [place] [address] Fibrinogen Coagulation.deriv ed (PPP) [Mass/Vol]on 03-26-2024 FIBRINOGEN 210 mg/dL Normal 190-480 [facility] Comment on above: Performed By: #### C BCA, 88264-8, PINR, 47024-7, 2639-3, 1798- 8, CMP, 3040-3, 5643-2 #### [facility] ([id number]) [address], [address] [place] [address] LIPASEon 03-26-2024 Lipase [Catalytic activity/Vol] 57 U/L Normal 11-82 [facility] Comment on above: Performed By: #### C BCA, 84288-6, PINR, 14156-2, 2639-3, 1798- 8, CMP, 3040-3, 5643-2 #### [facility] ([id number]) [address], [address] [place] [address] Myoglobin [Mass/Vol]on 03-26 SERUM MYOGLOBIN 145.4 ng/mL High 14.3-65.8 [facility] Comment on above: Performed By: #### C BCA, 02983-4, PINR, 37491-2, 2639-3, 1798- 8, CMP, 3040-3, 5643-2 #### [facility] ([id number]) [address], [address] [place] [address] POC CHEM7 W/ HCTon 4 Chloride [Moles/Vol] 104 mmol/L Normal 98-109 [facility] Comment on above: Performed By: #### C BCA, 05384-6, PINR, 44056-8, 2639-3, 1798- 8, CMP, 3040-3, 5643-2 #### [facility] ([id number]) [address], [address] [place] [address] CO2 [Moles/Vol] 24 mmol/L Normal 22-32 [facility] Comment on above: Performed By: #### C BCA, 59621-7, PINR, 68858-3, 2639-3, 1798- 8, CMP, 3040-3, 5643-2 #### [facility] ([id number]) [address], [address] [place] [address] Creatinine [Mass/Vol] 0.8 mg/dL Normal 0.4-1.0 [facility] Comment on above: Result Comment: METH OD TRACEABLE TO IDMS STANDARD Performed By: #### C BCA, 87554-6, PINR, 84465-7, 2639-3, 1798-8, CMP, 3040-3, 5643-2 #### [facility] ([id number]) [address] [address] GFR/1.73 sq M.predicted among non-blacks MDRD (S/P/Bld) [Vol rate/Area] 84 mL/min/{1.73_m2} Normal >59 [facility] Comment on above: Result Comment: Reported eGFR is based on the CKD-EPI 2020 equation that does not use a race coefficient. Performed By: #### C BCA, 49610-6, PINR, 93832-2, 2639-3, 1798-8, CMP, 3040-3, 5643-2 #### [facility] ([id number]) [address], [address] [address] Glucose [Mass/Vol] 100 mg/dL High 65-99 [facility] Comment on above: Performed By: #### C BCA, 22037-4, PINR, 52823-3, 2639-3, 1798- 8, CMP, 3040-3, 5643-2 #### [facility] ([id number]) [address] [address] Hematocrit (Bld) [Volume fraction] 30 % Low 35-47 [facility] Comment on above: Performed By: #### C BCA, 26694-6, PINR, 28940-9, 2639-3, 1798- 8, CMP, 3040-3, 5643-2 #### [facility] ([id number]) [address] [address] Potassium [Moles/Vol] 3.6 mmol/L Normal 3.5-5.0 [facility] Comment on above: Performed By: #### C BCA, 86497-1, PINR, 12808-3, 2639-3, 1798- 8, CMP, 3040-3, 5643-2 #### [facility] ([id number]) [address], [address] [place] [address] Sodium [Moles/Vol] 140 mmol/L Normal 134-146 [facility] Comment on above: Performed By: #### C BCA, 46293-9, PINR, 31238-1, 2639-3, 1798- 8, CMP, 3040-3, 5643-2 #### [facility] ([id number]) [address], [address] [place] [address] Urea nitrogen [Mass/Vol] 17 mg/dL Normal 6-23 [facility] Comment on above: Performed By: #### C BCA, 72488-4, PINR, 54666-1, 2639-3, 1798- 8, CMP, 3040-3, 5643-2 #### [facility] ([id number]) [address] [address] PROTIME AND INRon 03-26-2024 INR Coag (PPP) [Relative time] 1.0 {INR} Normal 0.8-1.1 [facility] Comment on above: Performed By: #### C BCA, 54794-1, PINR, 38258-9, 2639-3, 1798- 8, CMP, 3040-3, 5643-2 #### [facility] ([id number]) [address] [address] PT Coag (PPP) [Time] 12.0 s Normal 9.8-13.2 [facility] Comment on above: Performed By: #### C BCA, 76564-6, PINR, 93656-9, 2639-3, 1798- 8, CMP, 3040-3, 5643-2 #### [facility] ([id number]) [address], [address] [place] [address] XR CHEST 1 VWon 03-26-2024 XR CHEST 1 VW XR CHEST 1 VW XR CHEST 1 VW HISTORY: Trauma. Pain. COMPARISON: None FINDINGS: AP supine film obtained. The lung apices are not included within the [id number]-xn-gtbf. The tip of endotracheal tube is approximately 4.3 cm above the adelaide. The cardiomediastinal silhouette is within normal limits. No large pneumothorax or sizable pleural effusion, although evaluation is degraded by supine technique. No consolidation. IMPRESSION: No radiographic evidence of acute cardiopulmonary process. Approved by Resident Jay Ward MD on 03/26/2024 11:44 AM Marco A Blas MD have personally reviewed the image(s) and agree with and/or edited the report Finalized by Marco A Sanchez MD on 03/26/2024 11:52 AM Normal [facility] XR PELVIS 1 OR 2 VWSon 03-26 XR PELVIS 1 OR 2 VWS XR PELVIS 1 OR 2 VWS XR PELVIS 1 OR 2 VWS HISTORY: Trauma. Pain. COMPARISON: None FINDINGS: AP pelvis obtained. The lateral portion of the right femur is not included within the yrutx-iq-uyex. No fracture or dislocation. There is no destructive osseous lesion. Degenerative changes of the right hip. The osseous structures are well mineralized. IMPRESSION: No acute osseous abnormality. Approved by Resident Jay Ward MD on 03/26/2024 11:50 AM Marco A Blas MD have personally reviewed the image(s) and agree with and/or edited the report Finalized by Marco A Sanchez MD on 03/26/2024 11:54 AM Normal [facility] aPTT Coag (PPP) [Time]on aPTT Coag (Bld) [Time] 25 s Low 26-37 [facility] Comment on above: Performed By: #### C BCA, 58516-5, PINR, 57186-0, 2639-3, 1798- 8, CMP, 3040-3, 5643-2 #### [facility] ([id number]) [address] [place] [address] Vital Signs Date Time Vital Sign Value Performing Clinician Facility 09-21-2024 15:31-0500 Body height 170.2 cm Elmira Gong MD Work Phone: [facility] 09-21-2024 15:31-0500 Body mass index (BMI) [Ratio] 18.31 kg/m2 Elmira Gong MD Work Phone: [facility] 09-21-2024 15:31-0500 Body weight 53.02 kg Elmira Gong MD Work Phone: [facility] 09-21-2024 15:31-0500 Diastolic blood pressure 60 mm[Hg] Elmira Gong MD Work Phone: [facility] 09-21-2024 15:31-0500 Heart rate 60 /min Elmira Gong MD Work Phone: [facility] 09-21-2024 15:31-0500 Respiratory rate 18 /min Elmira Gong MD Work Phone: [facility] 09-21-2024 15:31-0500 SaO2% (BldA) [Mass fraction] 98 % Elmira Gong MD Work Phone: [facility] 09-21-2024 15:31-0500 Systolic blood pressure 108 mm[Hg] Elmira Gong MD Work Phone: [facility] 09-07-2024 13:36-0500 Body mass index (BMI) [Ratio] 18.37 kg/m2 Citlali Keren DO Work Phone: [facility] 09-07-2024 13:36-0500 Body weight 54.8 kg Citlali Keren DO Work Phone: [facility] 09-07-2024 13:36-0500 Diastolic blood pressure 68 mm[Hg] Citlali Keren DO Work Phone: [facility] 09-07-2024 13:36-0500 Systolic blood pressure 120 mm[Hg] Citlali Keren DO Work Phone: [facility] 07-28-2024 13:19-0400 Body height 172.7 cm Citlali Keren DO Work Phone: [facility] 07-28-2024 13:19-0400 Body mass index (BMI) [Ratio] 18.09 kg/m2 Citlali Keren DO Work Phone: [facility] 07-28-2024 13:19-0400 Body weight 53.98 kg Citlali Keren DO Work Phone: [facility] 07-28-2024 13:19-0400 Diastolic blood pressure 68 mm[Hg] Citlali Keren DO Work Phone: [facility] 07-28-2024 13:19-0400 Systolic blood pressure 110 mm[Hg] Citlali Keren DO Work Phone: [facility] 07-13-2024 13:19-0400 Body height 172.7 cm Sofia Rai NP Work Phone: [facility] 07-13-2024 13:19-0400 Body mass index (BMI) [Ratio] 18.09 kg/m2 Sofia Rai EMPLOYEE BENEFITS DIRECTOR Work Phone: [facility] 07-13-2024 13:19-0400 Body weight 53.98 kg Sofia Rai NP Work Phone: [facility] Encounters Encounter Date Encounter Type Care Provider Facility Start: 09-22-2024 End: 09-22-2024 Telephone encounter Elmira Gong MD Work Phone: [facility] Start: 09-21-2024 End: 09-21-2024 Patient encounter status Elmira Gong MD Work Phone: [facility] [employer] Work Phone: Start: 09-21-2024 End: 09-21-2024 Periodic preventive med est patient 40-64yrs El[facility]ira Gong MD [facility] Comment on above: Routine general medi prema examination at a health care facility (Primary Dx); HLA B27 positive; Menopausal vasomotor syndrome; Encounter for screening mammogram for malignant neoplasm of breast Start: 09-21-2024 End: 09-21-2024 ambulatory [facility] Start: 09-21-2024 Encounter for genera l adult medical examination without abnormal findings [facility] Start: 09-07-2024 End: 09-07-2024 Bamboo flowsheet Citlali Keren DO Work Phone: [facility] Start: 09-07-2024 End: 09-07-2024 Bamboo flowsheet Citlali Keren DO Work Phone: [facility] Start: 09-07-2024 End: 09-07-2024 Office outpatient visit 15 minutes Citlali Keren DO Work Phone: [facility] Comment on above: Pre-op examination; Family history of ovarian cancer; Postmenopausal bleeding; Pelvic pain; Dyspareunia in female; Pelvic pressure in female Start: 09-07-2024 End: 09-07-2024 Preprocedural examination done Citlali Keren DO Work Phone: [facility] Start: 09-07-2024 End: 09-07-2024 ambulatory CITLALI KEREN Not Available Start: 07-28-2024 End: 07-28-2024 Office outpatient visit 15 minutes Citlali Keren DO Work Phone: [facility] Comment on above: Encounter to discuss procedure; Dyspareunia in female; Pelvic pain; Pelvic pressure in female; Postmenopausal bleeding Start: 07-28-2024 End: 07-28-2024 ambulatory CITLALI KEREN Not Available Start: 07-27-2024 End: 07-27-2024 Bamboo flowsheet Sofia Rai EMPLOYEE BENEFITS DIRECTOR Work Phone: [facility] Start: 07-27-2024 End: 07-27-2024 Bamboo flowsheet Sofia Rai EMPLOYEE BENEFITS DIRECTOR Work Phone: [facility] Start: 07-27-2024 End: 07-27-2024 Office outpatient visit 10 minutes Sofia Rai EMPLOYEE BENEFITS DIRECTOR Work Phone: [facility] Comment on above: Trigger finger, righ t ring finger (Primary Dx); Finger pain, right Start: 07-27-2024 End: 07-27-2024 ambulatory SOFIA RAI Not Available Start: 07-13-2024 End: 07-13-2024 Bamboo flowsheet Sofia Rai EMPLOYEE BENEFITS DIRECTOR Work Phone: [facility] Start: 07-13-2024 End: 07-13-2024 Bamboo flowsheet Sofia Rai NP Work Phone: [facility] Start: 07-13-2024 End: 07-13-2024 ambulatory SOFIA RAI Not Available Start: 07-13-2024 End: 07-13-2024 Office outpatient new 30 minutes Sofia Rai NP Work Phone: [facility] Comment on above: Trigger finger, righ t ring finger (Primary Dx); Finger pain, right Start: 05-21-2024 End: 05-21-20[facility] Start: 03-26-2024 End: 03-28-2024 Emergency department patient visit [facility] Start: 03-26-2024 End: 03-27-2024 Evaluation and management [facility] Start: 02-21-2024 End: 02-21-2024 [facility] Start: 01-15-2024 Orders Only Christine Baker [facility] Comment on above: Genitourinary syndro me of menopause Procedures Date Procedure Procedure Detail Performing Clinician Start: 09-21-2024 Adult depression scr eening assessment Elmira Gong MD Work Phone: Start: 07-13-2024 Injection 1 tendon sheath/ligament aponeurosis Sofia Rai NP Work Phone: Start: 02-21-2024 Follow-up visit Follow-up ANATOLY DELATORRE Start: 09-20-2023 Adult depression scr eening assessment Christine Monge Start: 02-06-2023 Mammography Sofia fuller NP Work Phone: Plan of Treatment Date Care Activity Detail Author Start: 09-25-2025 Screening for malign ant neoplasm of colon [facility] Start: 09-23-2025 End: 09-23-2025 Patient encounter procedure 09/23/2025 2:00 PM EST Office Visit [facility] [address] [place] [id number] [facility] Start: 09-21-2025 Adult BMI Screening Adult BMI Screen ing [facility] Start: 09-21-2025 Depression Screening Depression Scre ening [facility] Start: 09-21-2025 Tobacco Screening Tobacco Screening [facility] Start: 03-26-2025 Adult BMI Screening Adult BMI Screen ing [facility] Start: 03-26-2025 Tobacco Screening Tobacco Screening [facility] Start: 10-15-2024 End: 10-15-2024 Patient encounter procedure 10/15/2024 9:00 AM EST Office Visit [facility] [address] [place] [place] [address] Sofia Rai NP [address] [place], [place] [id number] [facility] Start: 09-21-2024 End: 09-21-2024 Patient encounter procedure 09/21/2024 3:30 PM EST Office Visit [facility] [address] [place] [id number] Elmira Gong MD [address] [place], [place] [id number] [facility] Start: 09-21-2024 End: 09-21-2025 CBC W Auto Differential panel - Blood CBC auto differential Lab Routine Routine general medical examination at a health care facility Expected: 09/21/2024, Expires: 09/21/2025 [facility] Work Phone: Comment on above: Expected: 09/21/2024 , Expires: 09/21/2025 Start: 09-21-2024 End: 09-21-2025 Comprehensive metabolic 2000 panel - Serum or Plasma Comprehensive metabolic panel Lab Routine Routine general medical examination at a health care facility Expected: 09/21/2024, Expires: 09/21/2025 [facility] Comment on above: Expected: 09/21/2024 , Expires: 09/21/2025 Start: 09-21-2024 End: 09-21-2025 Lipid 1996 panel - Serum or Plasma Lipid profile Lab Routine Routine general medical examination at a health care facility Expected: 09/21/2024, Expires: 09/21/2025 [facility] Comment on above: Expected: 09/21/2024 , Expires: 09/21/2025 Start: 09-21-2024 End: 09-21-2025 Thyroid profile includes TSH FT4 Thyroid profile includes TSH FT4 Lab Routine Routine general medical examination at a health care facility Expected: 09/21/2024, Expires: 09/21/2025 [facility] Comment on above: Expected: 09/21/2024 , Expires: 09/21/2025 Start: 09-20-2024 Adult BMI Screening Adult BMI Screen ing [facility] Start: 09-20-2024 Depression Screening Depression Scre ening [facility] Start: 09-20-2024 Tobacco Screening [facility] [facility] Start: 09-16-2024 End: 09-16-2024 Patient encounter procedure 09/16/2024 2:15 PM EST Office Visit [facility] [address] [facility] [address] [place] [id number] Jr. Austin Cruz, [address] [facility] [address] [place] [address] [facility] Start: 09-07-2024 End: 09-07-2024 Patient encounter procedure [facility] Comment on above: Arrived Start: 07-28-2024 End: 07-28-2024 Patient encounter procedure 07/28/2024 1:20 PM EDT Office Visit [facility] [address] [place] [id number] Citlali Veliz, [address] [place] [address] [facility] Start: 07-27-2024 End: 07-27-2024 Patient encounter procedure [facility] Comment on above: Arrived Start: 06-14-2024 COVID-19 Vaccine ( season) COVID-19 Vaccine ( season) [facility] Start: 06-14-2024 Influenza vaccination [facility] Start: 02-21-2024 End: 02-21-2024 Telemedicine consultation with patient 02/21/2024 9:00 AM EDT Telemedicine [facility] Pel[facility] - Urogynecology [address] [facility] [address] [place] [phone] Anatoly Delatorre MD [address], [address] [place] [address] [facility] - [facility] Start: 02-07-2024 Screening for malign ant neoplasm of breast Mammogram [facility] Start: 06-14-2023 COVID-19 Vaccine ( season) COVID-19 Vaccine ( season) [facility] Start: 2013 Administration of varicella zoster vaccine Zoster (Shingles) Vaccine (1 of 2) [facility] Start: 1993 Screening for malign ant neoplasm of cervix [facility] Start: 1984 Screening for malign ant neoplasm of cervix Pap Smear [facility] Start: 1982 DTaP,Tdap and Td Vaccines (1 - Tdap) DTaP,Tdap and Td Vaccines (1 - Tdap) [facility] Start: 1981 Adult BMI Follow Up Plan Adult BMI Follow Up Plan [facility] Start: 1963 Screening for malign ant neoplasm of colon [facility] End: 09-21-2025 DBT Breast - bilateral screening Mammography screening bilateral with CAD Imaging Routine Encounter for screening mammogram for malignant neoplasm of breast 1 Occurrences starting 09/21/2024 until 09/21/2025 [facility] Comment on above: 1 Occurrences starti ng 09/21/2024 until 09/21/2025 Immunizations Immunization Date Immunization Notes Care Provider Frida higginbotham 02-18-2021 COVID-19 Vaccine, vector-nr, rS-Ad26, PF, 0.5mL Christine Joseph [facility] Payers Date Payer Category Payer Managed Care HMO (unspecified) [id number] 2024 Unknown [id number] 2016 Commercial Managed C are - HMO [employer] [id number] 2016 Unknown [employer] [facility] [employer] EMPLOYEES [id number] 2016-Present [phone] [address] [place] [address] [id number] 2016 Unknown [id number] 1965 Unknown [id number] 2.16.840.1.732069.3.579 .2.1286 1965 Unknown [id number] 2.16.840.1.216666.3.579 .2.128 1963 Unknown [id number] 2.16.840.1.524399.3.579 .2.1286 1963 Unknown [id number] 2.16.840.1.003885.3.579 .2.1285 1963 Unknown [id number] 2.16.840.1.020100.3.579 .2.1285 1963 Unknown [id number] 2.16.840.1.666740.3.579 .2.1285 1963 Unknown [id number] 2.16.840.1.483531.3.579 .2.128 1963 Unknown [id number] 2.16.840.1.574386.3.579 .2.1285 1963 Unknown [id number] 2.16.840.1.921394.3.579 .2.1285 1963 Unknown [id number] 2.16.840.1.199846.3.579 .2.1285 1963 Unknown [id number] 2.16.840.1.751965.3.579 .2.6 1963 Unknown [id number] 2.16.840.1.086101.3.579 .2.1258 1963 Unknown [id number] 2.16.840.1.111901.3.579 .2.9 1963 Unknown [id number] 2.16.840.1.039886.3.579 .2.1258 1963 Unknown [id number] 2.16.840.1.559934.3.579 .2.9 1965 Unknown [id number] 2.16.840.1.879664.3.579 .2.1286 Social History Date Type Detail Facility Start: 09-19-2022 End: 07-13-2024 Tobacco smoking status NHIS Never smoked tobacco [facility] Start: 09-19-2022 End: 07-13-2024 Tobacco use and exposure Smokeless tobacco non-user [facility] Start: 09-20-2023 End: 07-13-2024 Alcohol intake Current drinker of alcohol (finding) [facility] Start: 09-20-2023 End: 07-13-2024 History of Social function [facility] Start: 09-20-2023 End: 07-13-2024 Tobacco use panel [facility] Adolescent depressio n screening assessment 0 [facility] Start: 04-15-2018 Alcohol Comment sometimes [facility] Start: 1965 Sex Assigned At Female P [facility] Start: 06-14-2022 Gender identity Identifies as female gender (finding) [facility] Start: 1965 Sex assigned at Not on file [facility] [employer] Has the electric, ga s, oil, or water company threatened to shut off services in your home in past 12Mo No [facility] Start: 05-19-2015 Sex Female (finding) [facility] Tobacco smoking stat us NHIS Tobacco smoking consumption unknown [facility] Goals Date Patient Goal Desired Activity /State Personal health goal Comment on above: Formatting of this n ote might be different from the original. Evaluation of progress towards goal: home, self care. Clinical Notes 01-15-2024 to 09-22-2024 Telephone Encounter - Elmira Gong MD - 09/22/2024 2:50 PM ESTTelephone Encounter - Maeve Allred CMA - 09/22/2024 2:50 PM Victor Manuel Gong MD - 09/21/2024 3:30 PM EST Note Date & Type Note Facility 09-22-2024 Miscellaneous Notes Outside labs hgb improved to 11.7 from 10.2 Chol increased from 204 to 246, please try low fat diet and pt doesnot need statin at this time repeat yearly and otw labs are good Patient notified and understood instructions. Labs entered into system. documented in this encounter [facility] 09-22-2024 Telephone encounter Note Outside labs hgb improved to 11.7 from 10.2 Chol increased from 204 to 246, please try low fat diet and pt doesnot need statin at this time repeat yearly and otw labs are good [facility] [employer] 09-22-2024 Telephone encounter Note Patient notified and understood instructions. Labs entered into system. [facility] 09-21-2024 History of Present illness Narrative Images from the original note were not included. [address] [facility] [address] Subjective: Karo Cablalero is a 59 y.o. female who presents for an Annual Wellness exam. 59 yo WF with wellness , nonsmoker, social ethanol, pt is physically active and pt planning bilaterL OOPHERECTOMY AND uterine ablation The following portions of the patient's history were reviewed and updated as appropriate: medications, allergies, past medical history, past surgical history, social history, family history and immunization history Vitals: Vitals: 09/21/24 1531 BP: 108/60 Pulse: 60 Resp: 18 SpO2: 98% Weight: 53 kg (116 lb 14.4 oz) Height: 170.2 cm (5' 7 ) History: Patient Active Problem List Diagnosis Date Noted Fall from , initial encounter 03/26/2024 Family history of breast cancer 02/21/2024 Family history of ovarian cancer 02/21/2024 Genitourinary syndrome of menopause 06/15/2022 Menopausal vasomotor syndrome 06/15/2022 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 Receiving neoadjuvant chemo. Breast cancer Mother 52 recurrence 20y later Lung cancer Father 65 Diabetes Father Breast cancer Maternal Aunt 60 Colon cancer Maternal Aunt 55 Melanoma Maternal Uncle 30 Breast cancer Paternal Aunt 70 Ovarian cancer Paternal Grandmother 50 Prostate cancer Paternal Grandfather 85 Social History Tobacco Use Smoking status: Never Smokeless tobacco: Never Substance Use Topics Alcohol use: Yes Comment: sometimes Allergies: No Known Allergies Immunization History Administered Date(s) Administered COVID-19 Vaccine, vector-nr, rS-Ad26, PF, 0.5mL 02/18/2021 Review of Systems: Review of Systems Constitutional: Negative. Respiratory: Negative. Cardiovascular: Negative. Gastrointestinal: Negative. Genitourinary: Negative. Neurological: Negative. Psychiatric/Behavioral: Negative. Objective: BP 108/60 Pulse 60 Resp 18 Ht 170.2 cm (5' 7 ) Wt 53 kg (116 lb 14.4 oz) SpO2 98% BMI 18.31 kg/m Physical Exam Vitals and nursing note reviewed. Constitutional: Appearance: Normal appearance. HENT: Head: Normocephalic and atraumatic. Eyes: Extraocular Movements: Extraocular movements intact. Pupils: Pupils are equal, round, and reactive to light. Cardiovascular: Rate and Rhythm: Normal rate and regular rhythm. Pulses: Normal pulses. Heart sounds: Normal heart sounds. Pulmonary: Effort: Pulmonary effort is normal. Breath sounds: Normal breath sounds. Skin: General: Skin is warm and dry. Neurological: General: No focal deficit present. Mental Status: She is alert and oriented to person, place, and time. Psychiatric: Mood and Affect: Mood normal. Behavior: Behavior normal. Assessment/Plan: Karo was seen today for annual exam. Diagnoses and all orders for this visit: Routine general medical examination at a health care facility - CBC auto differential; Future - Comprehensive metabolic panel; Future - Lipid profile; Future - Thyroid profile includes TSH FT4; Future HLA B27 positive - hydroxychloroquine (PLAQUENIL) 200 mg tablet; Take 1 tablet (200 mg total) by mouth in the morning and 1 tablet (200 mg total) before bedtime. Menopausal vasomotor syndrome - PARoxetine (PaxiL) 10 mg tablet; Take 1 tablet (10 mg total) by mouth nightly. Plan Outpatient Medications Prior to Visit Medication Sig Dispense Refill estradioL (ESTRACE) 0.01 % (0.1 mg/gram) vaginal cream Insert 1 g into the vagina 2 (two) times a week. 127.5 g 3 multivitamin capsule Take 1 capsule by mouth in the morning. hydroxychloroquine (PLAQUENIL) 200 mg tablet Take 1 tablet (200 mg total) by mouth in the morning and 1 tablet (200 mg total) before bedtime. 180 tablet 1 PARoxetine (PaxiL) 10 mg tablet Take 1 tablet (10 mg total) by mouth nightly. 90 tablet 3 No facility-administered medications prior to visit. Follow Up: Mammogram and Fasting labs ordered Cologard next year documented in this encounter [facility] 09-07-2024 History of Present illness Narrative Reason for Appointment: Patient ID: Karo Caballero is a 59 y.o. female who presents for Pre-op Visit Patient presents today for Pre Op appointment. Patient is scheduled to undergo Diagnostic Laparoscopy with Bilateral Salpingo- Oophorectomy, possible LINDA, possible FOE and D&C Hysteroscopy, possible Myosure on 10/02/[address] Veliz at [facility]. MEDICATIONS Current Outpatient Medications Medication Instructions estradiol (ESTRACE) 1 g, 2 times weekly hydroxychloroquine (PLAQUENIL) 200 mg, Oral, 2 times daily Multiple Vitamin (multivitamin) capsule 1 capsule, Oral, Daily RT PARoxetine (PAXIL) 10 mg, Oral, Nightly ALLERGIES No Known Allergies PROBLEMS Active Ambulatory Problems Diagnosis Date Noted No Active Ambulatory Problems Resolved Ambulatory Problems Diagnosis Date Noted No Resolved Ambulatory Problems No Additional Past Medical History HISTORY PAST MEDICAL HISTORY SOCIAL HISTORY No past medical history on file. Social History Tobacco Use Smoking status: Never Smokeless tobacco: Never Substance Use Topics Alcohol use: Yes Drug use: Not on file FAMILY HISTORY Family History Problem Relation Name Age of Onset Cancer Mother Cancer Father Diabetes Father SURGICAL HISTORY Past Surgical History: Procedure Laterality Date CERVICAL FUSION 2013 SECTION, CLASSIC x 2......TUBAL WITH LAST CSECTION TONSILLECTOMY REVIEW OF SYSTEMS Review of Systems: Review of Systems Constitutional: Negative. HENT: Negative. Eyes: Negative. Respiratory: Negative. Cardiovascular: Negative. Gastrointestinal: Negative. Genitourinary: Positive for dyspareunia, pelvic pain and vaginal bleeding. Musculoskeletal: Negative. Skin: Negative. Neurological: Negative. All other systems reviewed and are negative. Hematological: Negative. Endocrine: Negative. Allergic/Immunologic: Negative. OBJECTIVE Objective: Physical Exam Constitutional: Appearance: Normal appearance. She is well-developed. Cardiovascular: Rate and Rhythm: Normal rate and regular rhythm. Pulmonary: Effort: Pulmonary effort is normal. Breath sounds: Normal breath sounds. Abdominal: General: Bowel sounds are normal. There is no distension. Palpations: Abdomen is soft. Tenderness: There is no abdominal tenderness. There is no guarding or rebound. Musculoskeletal: General: No swelling. Normal range of motion. Right lower leg: No edema. Left lower leg: No edema. Neurological: Mental Status: She is alert and oriented to person, place, and time. Skin: General: Skin is warm and dry. Psychiatric: Mood and Affect: Mood normal. Behavior: Behavior normal. Vitals and nursing note reviewed. Exam conducted with a seating upholsterer present. Vitals: Estimated body mass index is 18.09 kg/m as calculated from the following: Height as of 07/28/24: 5' 8 . Weight as of 07/28/24: 119 lb. BP: No LMP recorded. ASSESSMENT & PLAN ICD-10-CM 1. Pre-op examination Z01.818 2. Family history of ovarian cancer Z80.41 3. Postmenopausal bleeding N95.0 4. Pelvic pain R10.2 5. Dyspareunia in female N94.10 6. Pelvic pressure in female R10.2 Pre Op: Patient is doing well but has complaints of postmenopausal bleeding and family history of ovarian cancer. I have discussed conservative management vs. surgical management with the patient in detail and patient desires surgical management at this time. Patient will undergo Diagnostic Laparoscopy with Bilateral Salpingo- Oophorectomy, possible LINDA, possible FOE and D&C Hysteroscopy, possible Myosure on 10/02/2024. Surgical consents were signed, mmc was reviewed, and patient is to proceed to [facility] OR. Discussed/answered patients questions in regards to scheduled surgery verses hysterectomy. Ensured patient that with D&C sampling of tissue will give reassurance and that recovery from scheduled procedure is shorter than hysterectomy. Informed patient that at this time sampling would need to be done either way prior to hysterectomy. If patient changes her mind and would like to change procedure and it could be looked into changing to hysterectomy & procedure would then be able to be re-pre certified. Follow Up: Patient is to follow up between 1-2 weeks post operative to assess proper healing and recovery from procedure. Documented by Yandy Art LPN on behalf of: Citlali Veliz DO documented in this encounter [facility] 07-28-2024 History of Present illness Narrative Reason for Appointment: Patient ID: Karo Caballero is a 59 y.o. female who presents for Discuss hysterectomy Patient presents today for Acute Visit. MEDICATIONS Current Outpatient Medications Medication Instructions estradiol (ESTRACE) 1 g, 2 times weekly hydroxychloroquine (PLAQUENIL) 200 mg, Oral, 2 times daily Multiple Vitamin (multivitamin) capsule 1 capsule, Oral, Daily RT PARoxetine (PAXIL) 10 mg, Oral, Nightly ALLERGIES No Known Allergies PROBLEMS Active Ambulatory Problems Diagnosis Date Noted No Active Ambulatory Problems Resolved Ambulatory Problems Diagnosis Date Noted No Resolved Ambulatory Problems No Additional Past Medical History HISTORY PAST MEDICAL HISTORY SOCIAL HISTORY History reviewed. No pertinent past medical history. Social History Tobacco Use Smoking status: Never Smokeless tobacco: Never Substance Use Topics Alcohol use: Yes Drug use: Not on file FAMILY HISTORY Family History Problem Relation Name Age of Onset Cancer Mother Cancer Father Diabetes Father SURGICAL HISTORY Past Surgical History: Procedure Laterality Date CERVICAL FUSION 2013 SECTION, CLASSIC x 2......TUBAL WITH LAST CSECTION TONSILLECTOMY REVIEW OF SYSTEMS Review of Systems: Review of Systems OBJECTIVE Objective: OBGyn Exam Vitals: Estimated body mass index is 18.09 kg/m as calculated from the following: Height as of this encounter: 5' 8 . Weight as of this encounter: 119 lb. BP: 110/68 No LMP recorded. ASSESSMENT & PLAN ICD-10-CM 1. Encounter to discuss procedure Z71.89 2. Dyspareunia in female N94.10 3. Pelvic pain R10.2 4. Pelvic pressure in female R10.2 5. Postmenopausal bleeding N95.0 Pt presents to discuss surgical management. Pt has complaints of vaginal/pelvic pressure, dyspareunia, family h/o ovarian cancer and postmenopausal bleeding. Discussed multiple options. Pt to be scheduled for D&C hysteroscopy with possible myosure and lap bilateral salpingo-oophorectomy. Pt to return for preop exam. Documented by Dixie Fish LPN on behalf of: Citlali Veliz DO documented in this encounter [facility] 07-27-2024 History of Present illness Narrative Images from the original note were not included. NAME: Karo Caballero : 1965 HISTORY OF PRESENT ILLNESS: Karo Caballero is an 59 y.o. @ female. (EST PT) RT RF TRIGGER 3 MTHS (04/2024). S/P DEPO INJ 07/13 (2 WKS) DEPO INJECTION 07/13/24 STATES HER FINGER IS STILL TRIGGERING INTERMITTENTLY. SORENESS WHEN IT TRIGGERS. NO PAIN MEDS. DENIES N/T, SWELLING. DOES NOT WAKE AT HS. OCCAS DIFFICULTY GRIPPING. RT HANDED. PAST MEDICAL HISTORY: History reviewed. No pertinent past medical history. PAST SURGICAL HISTORY: Past Surgical History: Procedure Laterality Date SECTION, CLASSIC x 2 TONSILLECTOMY ALLERGIES: No Known Allergies HOME MEDICATIONS: Current Outpatient Medications Medication Instructions hydroxychloroquine (PLAQUENIL) 200 mg, Oral, 2 times daily PARoxetine (PAXIL) 10 mg, Oral, Nightly Vitals: There is no height or weight on file to calculate BMI. PHYSICAL EXAM: Right Hand Exam Tenderness The patient is experiencing tenderness in the palmar area (4th MCP). Range of Motion Hand MP Ring: abnormal PIP Ring: abnormal Other Sensation: normal Pulse: present Comments: Catching and locking of right RT. Pain over A1 josee. IMAGING: No image results found. Procedures ASSESSMENT: ICD-10-CM 1. Trigger finger, right ring finger M65.341 2. Finger pain, right M79.644 PLAN: Patient states that she is still having some catching and locking in right ring finger after injection. I recommend that patient meet with Dr. Cruz to further discuss possible trigger finger release of right ring finger. Questions answered in laymen terms at the bedside. The diagnosis, home exercise plan and any ongoing restrictions/ recommendations reviewed. If unable to be reached in office, I recommend evaluation at nearest Emergency Room if any symptoms worsened or new symptoms develop for requiring urgent evaluation. Sofia Rai APRN-[employer] documented in this encounter [facility] 07-13-2024 History of Present illness Narrative Associated Order(s): Tendon Sheath Inj (CPT 40630 Only): R ring A1 Post-Procedure Diagnose(s): Trigger finger, right ring finger Images from the original note were not included. NAME: Karo Caballero : 1965 HISTORY OF PRESENT ILLNESS: Karo Caballero is an 59 y.o. @ female. RT RF TRIGGER 2 MTHS (04/2024). STATES HER FINGER TRIGGERS PRETTY REGULARLY, SHE HAS TO FLICK IT BACK STRAIGHT. CONSTANT SORENESS IN FINGER. NO PAIN MEDS. DENIES N/T. ADMITS SWELLING. DOES NOT WAKE AT HS. DIFFICULTY GRIPPING. DENIES DROPPING THINGS. RT HANDED. PAST MEDICAL HISTORY: History reviewed. No pertinent past medical history. PAST SURGICAL HISTORY: Past Surgical History: Procedure Laterality Date SECTION, CLASSIC x 2 TONSILLECTOMY ALLERGIES: No Known Allergies HOME MEDICATIONS: Current Outpatient Medications Medication Instructions hydroxychloroquine (PLAQUENIL) 200 mg, Oral, 2 times daily PARoxetine (PAXIL) 10 mg, Oral, Nightly Vitals: Body mass index is 18.09 kg/m . PHYSICAL EXAM: Right Hand Exam Tenderness The patient is experiencing tenderness in the palmar area (4th MCP). Range of Motion Hand MP Ring: abnormal PIP Ring: abnormal Other Sensation: normal Pulse: present Comments: Catching and locking of right RT. Pain over A1 josee. IMAGING: No image results found. Tendon Sheath Inj (CPT [id number] Only): R ring A1 on 07/13/2024 4:22 PM Details: 24 G needle, anterior approach Medications: 20 mg methylPREDNISolone acetate 40 MG/ML Outcome: tolerated well, no immediate complications Site cleaned with isopropyl alcohol. Procedure, treatment alternatives, risks and benefits explained, specific risks discussed. Consent was given by the patient. ASSESSMENT: ICD-10-CM 1. Trigger finger, right ring finger M65.341 2. Finger pain, right M79.644 PLAN: I reviewed exam findings with the patient and discussed treatment options, answered questions. I discussed with the patient the option of a trigger finger injection. I advised the patient of risks associated with an injection including a reaction to medication, infection, failure to improve and possible worsening. The patient demonstrated understanding. Patient requesting injection. Skin Cleansed with alcohol swab. Utilizing aseptic technique patient given 20mg Depomedrol was injected into RT ring finger. Patient tolerated this well. Neurovasc intact s/p injection. Post injection care instructions discussed. Follow up in 2 weeks for RCK. Questions answered in laymen terms at the bedside. The diagnosis, home exercise plan and any ongoing restrictions/ recommendations reviewed. If unable to be reached in office, I recommend evaluation at nearest Emergency Room if any symptoms worsened or new symptoms develop for requiring urgent evaluation. Sofia Rai APRN-[employer] documented in this encounter [facility] 03-26-[address] CERVICAL SPINE WO CONT Procedure: CT CERVICAL SPINE WO CONT History: major trauma injury Multi-detector CT performed through the cervical spine in the axial plane with multiplanar reconstructions.Automated exposure control was utilized. Findings: There is no prevertebral soft tissue swelling. Disc disease and facet arthritis lower cervical spine with interbody fusion hardware which shows no acute findings. There is no fracture, malalignment or destructive lesion. IMPRESSION: * No acute findings. Consider MRI cervical spine and possibly cervical spine flexion-extension radiographs if you suspect occult soft tissue injury and/or ligamentous injury. All CT scans at this facility use dose modulation, iterative reconstruction, and/or weight based dosing when appropriate to reduce radiation dose to as low as reasonably achievable. Finalized by Alfredo Thomas MD on 03/26/2024 11:56 AM [facility] 01-15-2024 History of Present illness Narrative Patient called and stated she was unable to get another refill until 10/06 and has 3 refills remaining. I have resent prescription. documented in this encounter [facility] Evaluation note Diagnosis Genitourinary syndrome of menopause [facility] Diagnosis Trigger finger, right ring finger- Primary Finger pain, right Pain in soft tissues of limb documented [facility] Diagnosis Encounter to discuss procedure Dyspareunia in female Pelvic pain Pelvic pressure in female Postmenopausal bleeding [facility] Diagnosis Pre-op examination Family history of ovarian cancer Family history of malignant neoplasm of ovary Postmenopausal bleeding Pelvic pain Dyspareunia in female Pelvic pressure in female [facility]* Diagnosis Routine general medical examination at a health care facility- Primary HLA B27 positive Genetic susceptibility to other disease Menopausal vasomotor syndrome Encounter for screening mammogram for malignant neoplasm of breast documented in this encounter [facility] System[facility]* Diagnosis Trigger finger, right ring finger- Primary Finger pain, right Pain in soft tissues of limb [facility] HealthcareInstructionsNot on filedocumented in this encounterProOhiohealth [facility] SystemInstructions* Attachments The following attachments cannot be sent through Care Everywhere. 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 [address] PCP - [facility] 07/13/24 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 [address] PCP - General [facility] 07/13/24 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 [address] PCP - [facility] 06/06/20 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 [address] PCP - [facility] 07/13/24 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 [address] PCP - [facility] 07/13/24 INFORMATION SOURCE (unrecogn ized section and content) DATE CREATED AUTHOR 02/23/2024 [facility] DATE CREATED AUTHOR AUTHOR'S ORGANIZ ATION 03/29/2024 [facility] DATE CREATED AUTHOR AUTHOR'S ORGANIZ ATION 05/24/2024 [facility] DATE CREATED AUTHOR AUTHOR'S ORGANIZ ATION 09/09/[address] [facility] DATE CREATED AUTHOR AUTHOR'S ORGANIZ ATION 09/24/2024 [facility] Reason for Visit (unrecogniz ed section and content) Reason Comments Follow-up Reason Comments Discuss hysterectomy Reason Comments Pre-op Visit Reason Comments Annual Exam Reason Comments Pain FOR RECORDS PERTAINING TO PATIENTS WHO ARE OR HAVE BEEN ENROLLED IN A CHEMICAL DEPENDENCY/SUBSTANCEABUSE PROGRAM, SOME INFORMATION MAY BE OMITTED. This clinical summary was aggregated from multiple sources. Caution should be exercised in using it in the provision of clinical care. This summary normalizes information from multiple sources, and as a consequence, information in this document may materially change the coding, format and clinical context of patient data. In addition, data may be omitted in some cases. CLINICAL DECISIONS SHOULD BE BASED ON THE PRIMARY CLINICAL RECORDS. [facility]. provides no warranty or guarantee of the accuracy or completeness of information in this document.
[2024-10-02 07:48] LABS: Basophils Absolute Auto 0.1 10^3/uL (0.0-0.1); Basophils Percent Auto 0.9 % (0.2-2.0); Eosinophils Absolute Auto 0.2 10^3/uL (0.0-0.7); Eosinophils Percent Auto 2.7 % (0.9-7.0); Hematocrit 36.3 % (36.0-48.0); Hemoglobin 11.7 g/dL (12.0-16.0); Immature Granulocytes Abs Auto 0.02 10^3/uL (0.00-0.03); Immature Granulocytes Pct Auto 0.4 % (0.0-0.5); Lymphocytes Absolute Auto 1.7 10^3/uL (1.2-3.8); Lymphocytes Percent Auto 30.9 % (20.5-60.0); Mean Corpuscular HGB Conc 32.2 g/dL (29.9-35.2); Mean Corpuscular Hemoglobin 30.5 pg (26.7-34.0); Mean Corpuscular Volume 94.8 fL (81.0-99.0); Monocytes Absolute Auto 0.6 10^3/uL (0.3-0.8); Monocytes Percent Auto 9.8 % (1.7-12.0); Neutrophils Absolute Auto 3.1 10^3/uL (1.4-6.5); Neutrophils Percent Auto 55.3 % (43.0-75.0); Platelet Count 234 10^3/uL (150-450); Red Blood Count 3.83 10^6/uL (4.20-5.40); Red Cell Distribution Width 13.1 % (11.0-15.0); White Blood Count 5.6 10^3/uL (4.0-11.0)
[2024-10-02] MEDS: SCOPOLAMINE 1 MG/3 DAYS TRANSDERM PATCH 1 PATCH TD (08:15)
[2024-10-02] MEDS: FAMOTIDINE/PF 20 MG/2 ML VIAL IV (08:16)
[2024-10-02] MEDS: LACTATED RINGER'S SOLUTION 1,000 ML 50 ML IV ×3 (08:16→13:24)
--- NOTE | 2024-10-02 10:26 | P.ON_ITS ---
Brief Operative Note Date of procedure: 10/02/24 Pre-op diagnosis general: pelvic pain, pmb, ho ovarian cancer, dysparuenia, pe lvic pressure Post-op diagnosis: same as pre-op Procedure: NAME OF PROCEDURE: [d&c hysteroscopy, robotic assisted laparoscopic salpingoopherectomy] PROCEDURE: The patient was taken back to the Operating Room where she was prepped and draped in normal sterile fashion after being placed under general anesthesia without difficulty. She was also placed in the dorsal lithotomy position. A weighted speculum was placed in the patient?s vagina. The anterior lip of the cervix was identified and grasped with a single tooth tenaculum. The patient?s uterus was then sounded roughly to [7? ] cm. The patient was then gently dilated using Hegar dilators. The hysteroscope was passed through the patient?s cervix into the uterus. Both ostia were identified. Normal appearing endometrium. No gross evidence of polyps, fibroids or malignancy. The hysteroscope was then removed from the patient's uterus.? At that point, gentle curettage was performed until a gritty texture was noted. The endometrial curettings were sent out to pathology.? The single tooth tenaculum was then removed from the patient's anterior lip of the cervix where excellent hemostasis was noted. A wet sponge stick was placed into the patient's vagina. Attention was then turned to the patient's abdomen, where a scalpel was used to make a small infraumbilical incision. The S retractors were then used to dissect the underlying layers until the fascia could be seen. The fascia was then grasped with Bev clamps and tented up. A knife was then used to make a small incision to the fascia. The muscle was identified, at that time two sutures of #0 Vicryl on a GI needle was then used and placed through the fascia. the peritoneum was then identified and entered bluntly. The 10-4 Melissa was then placed into the patient's abdomen. This was confirmed with direct visualization of the bowel, using the laparoscope. The patient's abdomen was then insufflated using approximately 4 liters of CO2 gas. Survey of the patient's abdomen demonstrated ovaries were normal in appearance as well as both tubes and uterus. A second and third rt and lt lateral robotic ports which were 8 mm in size, was then placed after the skin incision was made under direct visualization . the robotic arms were engaged. The patient's tube on the patient's right side was identified and tented up using a grasper, the ligasure apparatus was then used to come across the mesosalpingx from the fimbriated end to the insertion site at the uterus, the tube was then amputated and removed in its entirety. This was done on the contralateral side. the ligasure was also used to transect and ligate the infundibular pelvic ligament on the patient rt side, the ovary was removed, this was done on the contralateral side as wellThe tubes and ovaries were the removed from the patients abdomen. Excellent hemostasis was noted. The lateral ports were then moved under direct visualization with excellent hemostasis. All instruments were removed from the patient's abdomen. The fascia was closed using the #0 Vicryl on GI needle. The skin was closed using 4-0 Vicryl subcuticularly. All instruments were removed from the patient's vagina as well. The patient was taken out of the dorsal lithotomy position and placed in the supine position and taken to recovery in stable condition. Sponge, lap and needle counts were correct x2. Anesthesia: MIRACLE Surgeon: Cem Veliz Bleacher Operator: Dona Youngblood Estimated blood loss (mL): 5 Pathology: other (tubes and ovaries) Condition: stable Disposition: PACU Urinary Catheter Management Urinary Catheter Management Urethral: Cath placed during this visit: no
== END 2024-10-02 15:40 | disposition home or self-care (01) ==
PROVIDERS: Family Provider Family Medicine; PCP Family Medicine; Visit Provider Obstetrics & Gynecology
PROC: (CPT 840; principal; 2024-10-02 09:00)
PROC: (CPT 840; 2024-10-02 09:00)
DX: N85.8 Other specified noninflammatory disorders of uterus (principal); N83.8 Other noninflammatory disorders of ovary, fallopian tube and broad ligament; N95.0 Postmenopausal bleeding; R10.2 Pelvic and perineal pain; N94.10 Unspecified dyspareunia; Z98.1 Arthrodesis status; Z80.41 Family history of malignant neoplasm of ovary; Z79.899 Other long term (current) drug therapy
CPT/HCPCS: 58558; 58661; 36415; 85025; J1100; J1885; J2250; J2371; J2405; J2704; J3010